=== PATIENT | female | born 1975 | race Caucasian/White ===

== ENCOUNTER 2023-09-12 19:04 | Emergency (ER) | payer BC, OTHER ==
[~2023-09-12] VITALS: Ht 170.2 cm; Wt 95.7 kg
[2023-09-12 19:50] VITALS: BP_SYST 140; PULSE 105; RESP 18; TEMP 99.7; O2SAT 97
[2023-09-12] MEDS ORDERED: KETOROLAC TROMETHAMINE 60 MG/2 ML VIAL IM ONE (20:00)
[2023-09-12] MEDS ORDERED: TRAM50TA2 PO (20:11)
[2023-09-12] MEDS ORDERED: IBUP-1969 PO (20:11)
[2023-09-12 20:39] VITALS: BP_SYST 138; PULSE 99; RESP 18; TEMP 99.1; O2SAT 97
== END 2023-09-12 20:39 | disposition home or self-care (01) ==
LOC: SED 19:04
DX: S83.91XA Sprain of unspecified site of right knee, initial encounter (principal); Z79.899 Other long term (current) drug therapy; W01.0XXA Fall on same level from slipping, tripping and stumbling without subsequent striking against object, initial encounter; Y93.89 Activity, other specified; Y92.89 Other specified places as the place of occurrence of the external cause; Y99.8 Other external cause status
CPT/HCPCS: 99283; 73564; 96372; J1885